=== PATIENT | male | born 1940 ===

== ENCOUNTER 2017-04-24 14:19 | Inpatient (IN) | payer MEDICARE ==
[~2017-04-24] VITALS: Ht 157.5 cm; Wt 56.4 kg
[2017-04-24] MEDS ORDERED: PRINIVIL20 MG PO (18:24)
[2017-04-24] MEDS ORDERED: MULTIPLE VITAMI1 TA1 PO (18:25)
[2017-04-24] MEDS ORDERED: IBUPROFEN200 MG PO (18:26)
[2017-04-24] MEDS ORDERED: ZANTAC150 MG PO (18:26)
[2017-04-24] MEDS ORDERED: PLAVIX75 MG PO (18:26)
[2017-04-24] MEDS ORDERED: PRAVACHOL40 MG PO (18:27)
[2017-04-24] MEDS ORDERED: TENORMIN25 MG PO (18:27)
[2017-04-24] MEDS ORDERED: ZYLOPRIM100 MG PO (18:28)
[2017-04-24] MEDS ORDERED: ULTRAM50 MG PO (18:28)
[2017-04-24] MEDS ORDERED: BAYER CHEWABLE81 MG PO (18:29)
--- NOTE | 2017-04-24 19:17 | NUR ---
Recieved patient via EMS from [facility] at 1800, alert and oriented too self and being in a hospital, patient stated that he was here because he was crazy, Code status is Full Code, VSS T 97.8, B/P 130/88, 96, O2 93% on RA, calm and cooperative with care and assessment, labs ordered , will continue to monitor.
[2017-04-24 21:41] VITALS: BP 100/70
[2017-04-25 02:22] VITALS: BP 130/88; BMI 22.7
[2017-04-25 05:39] LABS: HEMOGLOBIN A1C 5.2 % (4.8-6.0)
[2017-04-25 05:41] LABS: BASOPHILS 0.7 % (0-2); EOSINOPHILS 6.4 % (0-7); HEMATOCRIT 31.2 % (42.0-54.0); HEMOGLOBIN 10.3 g/dL (13.5-17.5); MCH 32.2 pg (26.0-34.0); MCV 97.5 fL (80.0-100.0); MEAN PLATELET VOLUME 9.9 fL (7.4-10.4); MONOCYTES 15.9 % (2-11); PLATELET COUNT 239 10x3/uL (130-400); RDW 15.8 % (11.5-14.5); WBC 4.2 10x3/uL (4.8-10.8)
[2017-04-25 06:03] LABS: ALKALINE PHOSPHATASE 68 U/L (46-116); ALT (SGPT) 24 U/L (10-68); CALC OSMOLALITY 282 mosm/kg (275-300); CALCIUM 8.4 mg/dL (8.5-10.1); CARBON DIOXIDE 25.1 mmol/L (21.0-32.0); CHLORIDE - SERUM 106 mmol/L (98-107); CHOL - HDL RATIO 2.7 ratio (2.3-4.9); CHOLESTEROL, TOTAL 141 mg/dL (0-200); CREATININE - SERUM 0.6 mg/dL (0.6-1.3); GLUCOSE 95 mg/dL (74-106); HDL CHOLESTEROL 52 mg/dL (32-96); LDL CHOLESTEROL 71 mg/dL (0-100); LDL-HDL RATIO 1.4 ratio (1.5-3.5); POTASSIUM - SERUM 3.3 mmol/L (3.5-5.1); PROTEIN - SERUM 6.5 g/dL (6.4-8.2); SODIUM 143 mmol/L (136-145); THYROID STIMULATING HORMONE 1.58 uIU/mL (0.36-3.74); TRIGLYCERIDE 91 mg/dL (30-200); UREA NITROGEN 8 mg/dL (7-18); eGFR NON AFRICAN AMERICAN > 90 mL/min (90-120)
--- NOTE | 2017-04-25 07:55 | NUR ---
ASSESSMENT COMPLETE. MOOD PLEASANT THIS AM. DENIES ANY NEEDS AT THIS TIME.
[2017-04-25 08:20] VITALS: BP 134/67
--- NOTE | 2017-04-25 08:52 | NUR ---
TRAMADOL GIVEN FOR COMPLAINT OF NECK PAIN.
[2017-04-25 10:45] VITALS: BMI 22.5
[2017-04-25 15:05] LABS: APPEARANCE CLEAR (CLEAR); BILIRUBIN NEGATIVE (NEGATIVE); COLOR DK YELLOW (YELLOW); GLUCOSE NEGATIVE (NEGATIVE); KETONE NEGATIVE (NEGATIVE); LEUKOCYTE ESTERASE NEGATIVE (NEGATIVE); NITRITE NEGATIVE (NEGATIVE); PROTEIN NEGATIVE (NEGATIVE); SPECIFIC GRAVITY 1.015 (1.005-1.020); UROBILINOGEN NORMAL (NORMAL)
[2017-04-25 15:07] LABS: WHITE CELLS - URINE 0-5 /hpf (0-5)
[2017-04-25 15:08] LABS: MUCUS <1+ /lpf (NONE SEEN)
[2017-04-25 19:52] VITALS: BP 123/69
--- NOTE | 2017-04-25 20:45 | NUR ---
B) RECEIVED SITTING AT TABLE IN DAYROOM. ALERT AND ORIENTED TO NAME AND HOSPITAL. AMBULATES INDEPENDENTLY. PLEASANT MOOD AND TALKATIVE. I) ADMINISTERED PRESCRIBED MEDICATIONS. ASSESSMENT COMPLETED. VSS. R) COMPLIANT WITH TAKING MEDICATIONS. MAINTAIN FALL PRECAUTIONS. P) WILL CONTINUE PLAN OF CARE.
[2017-04-26 06:13] LABS: RAPID PLASMA REAGIN Non Reactive (Non Reactive)
[2017-04-26 07:25] LABS: VITAMIN D 25 HYDROXY 40.4 ng/mL (30.0-100.0)
[2017-04-26 08:18] LABS: FOLATE (FOLIC ACID) - SERUM >20.0 ng/mL (>3.0)
[2017-04-26 08:46] VITALS: BP 117/72
--- NOTE | 2017-04-26 09:40 | NUR ---
B) PATIENT C/O BACK AND NECK PAIN, PATIENT IS PLEASANT, HE IS SOFT SPOKEN, AMBULATES INDEPENDENTLY. HE HAS CONFUSION, HE IS ORIENTED TO SELF AND PLACE, BUT HAS POOR INSIGHT INTO HIS ILLNESS OR SITUATION. I) PROVIDE PRESCRIBED MEDS, DID PROVIDE 50 MG ULTRAM PO. R) PATIENT IS COMPLIANT WITH MEDS. P) CONTINUE POC.
--- NOTE | 2017-04-26 12:27 | PSY ---
PATIENT NAME:MARU BERRIOS MEDICAL RECORD: [id number] : 44 LOCATION:[facility] ADMISSION DATE: 04/24/17 ACCOUNT: [id number] PSYCHIATRIC EVALUATION DATE OF EVALUATION: 04/25/17 IDENTIFYING DATA: The patient is 77 years old and he is admitted to the hospital on a voluntary basis. CHIEF COMPLAINT: Confusion. HISTORY OF PRESENT ILLNESS: The patient was recently hospitalized at [facility] secondary to agitation and aggression. He was very confused, threatening the nurses trying to attack them and was in restraints. They referred him to us for inpatient psychiatric treatment after clearing him medically and neurologically and the patient interestingly has significantly improved. He does not have recollection for what happened. He does say that he knows he has been confused, but he cannot say why. He says he did not take any drugs, does not drink alcohol and that he does not know anything about it more that he could tell me. He says he is still confused, but he is actually oriented fully and says that he is continuing to get better, although again the reasons for this are a mystery. PAST MEDICAL HISTORY: Significant for hypertension. PAST PSYCHIATRIC HISTORY: Denied by the patient. FAMILY HISTORY: Unknown. ALLERGIES: NONSTEROIDALS. CURRENT MEDICATIONS: Include Pepcid, allopurinol, aspirin, lisinopril, atenolol, Plavix, Ultram, Motrin and pravastatin. SOCIAL HISTORY: The patient has a rather unusual history. He is single. He has never been and he has no children. He says he is homosexual, but the unusual part about this is that he has been an ongoing 40-year sexual relationship with his maternal uncle. He and the uncle have lived together for 40 years and again had this spousal equivalency relationship. The uncle is 87, apparently has cancer and is dying and is on hospice. The patient is upset about that, but it hardly would seem that that could explain his loss of contact with reality and then is quick with rapid return to it. 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 He also says that he used to be an alcoholic. He is evasive about exactly how much he drank, but states that he has not drank at all for more than 20 years. He denies that he ever had any legal problems or difficulties with drug addiction. He did graduate from college and he says he went to [employer] for 2 years. MENTAL STATUS EXAMINATION: The patient is awake, alert and oriented to person, place, time and situation. His mood is flat. His affect is constricted. Thought processes are circumstantial. Memory, concentration and abstraction abilities are mildly impaired and he denies any active intent to harm himself or others as well as overt psychotic symptoms. ASSETS: Stable living environment. LIABILITIES: Limited insight. DIAGNOSTIC IMPRESSION: AXIS I: Delirium, cause unknown. 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 AXIS II: Deferred. AXIS III: Hypertension and hypercholesterolemia. AXIS IV: Moderate stressors. AXIS V: Global assessment of functioning is 35. PLAN: At this time, the patient is admitted to the hospital secondary to aggressive behavior with homicidal intent. Although he has improved, I have no explanation for what occurred and so obviously have no explanation for why it is improved. He has had neuroimaging which shows white matter disease, this would be consistent with longstanding high blood pressure. That is not enough to explain the situation. I am going to have him tested by Dr. Leyda Garcia although he was oriented, he struggled to answer the questions on the mental status exam and I do think there is impairment here. It is unclear whether or not he is going to be able to live independently. His long-term prognosis is guarded. TRANSINT:[id number] Voice Confirmation ID: [id number] DOCUMENT ID: [id number] HOLLI HUNTER MD at 1227 CC: [id number] DICTATION DATE: 04/25/17 1400 APPOINTMENT SPECIALIST: 04/25/17 1529 [facility] IN [facility] [address] [place] [address]
[2017-04-26 19:30] VITALS: BP 126/80
--- NOTE | 2017-04-26 20:10 | NUR ---
ASSESMENT COMPLETED. SITTING IN DAYROOM AT TABLE, IN PLEASANT MOOD. NO VOICED NEEDS. COMPLIANT WITH TAKING MEDICATIONS AND UNIT MILIEU. VSS CONTINUE PLAN OF CARE.
--- NOTE | 2017-04-27 07:38 | NUR ---
ULTRAM 50 MG PO GIVEN FOR BACK OF NECK AREA AT LEVEL #9.
[2017-04-27 09:07] VITALS: BP 135/66
--- NOTE | 2017-04-27 10:43 | PN ---
PATIENT:MARU BERRIOS MEDICAL RECORD: [id number] LOCATION:[facility] ADMISSION DATE: 04/24/17 PROGRESS NOTE DATE OF SERVICE: 04/26/2017 SUBJECTIVE: The patient's case was discussed with staff. He has no new complaint. OBJECTIVE: The patient denies intent to harm himself or others. He tolerates his medicines well. ASSESSMENT: No change in diagnoses. PLAN: Brief supportive and educational interventions were made. Snf prognosis is guarded. The patient tested in the moderate range of impairment with Dr. Garcia. He rejects the findings. I am going to start him on Aricept. He does not object to this, although he does not think it is necessary. I have advised him not to drive. He says he is going to anyway. I have advised him not to live alone and he says that he will try to find a roommate after his uncle dies. TRANSINT:[id number] Voice Confirmation ID: [id number] DOCUMENT ID: [id number] HOLLI HUNTER MD at 1043 CC: [id number] DICTATION DATE: 04/26/17 1250 INTERIOR DECORATOR PAPERHANGING: 04/26/17 1747 ADM IN [id number] [place] [address]
--- NOTE | 2017-04-27 11:49 | NUR ---
B) PATIENT SPOKE WITH DR. HUNTER AND ASKED TO GO HOME, DECLINED. PATIENT IS NOT STABLE ENOUGH PSYCHOLOGICALLY TO BE BY HIMSELF, BUT HE KEEPS SAYING "WELL, I'LL CALL THE IMPERSONATOR CHARACTER OF MY PLACE AND THEY'LL COME GET ME" PATIENT IS NOT PLEASED THAT HE CAN NOT LEAVE YET. PATIENT AMBULATES INDEPENDENTLY. I) PROVIDE MEDS. R) PATIENT IS COMPLIANT WITH MEDS. P) CONTINUE POC.
--- NOTE | 2017-04-27 16:12 | NUR ---
PATIENT C/O PAIN IN HIS NECK AND BACK RATES PAIN 9/10. PROVIDED ULTRAM 50 MG PO NOW.
--- NOTE | 2017-04-27 16:30 | NUR ---
PATIENT SAYS HIS PAIN IS LESS NOW.
[2017-04-27 19:30] VITALS: BP 134/56
--- NOTE | 2017-04-28 04:20 | NUR ---
B) RECEIVED IN DAYROOM SITTING IN CHAIR WATCHING TV. ALERT AND ORIENTED TO SELF AND HOSPITAL. I) ADMINISTERED PRESCRIBED MEDICATIONS. VSS. R) MEDICATION COMPLIANT, MONITOR FOR SAFETY. P) CONTINUE PLAN OF CARE.
[2017-04-28 07:00] VITALS: BP 128/70
[2017-04-28 09:54] VITALS: Ht 157.5 cm; Wt 56.4 kg
--- NOTE | 2017-04-28 09:56 | NUR ---
ORIENTED TO PERSON AND THE FACT THAT HE IS IN A HOSPITAL. NO AGGRESSION NOTED. PT IS RESTLESS AND TALKS ALOT ABOUT HIS UNCLE. HE IS EASILY REDIRECTED WHEN NEEDED. HE IS SOCIAL WITH PEERS AND STAFF WHEN SPOKEN TO DIRECTLY. MEDICATIONS GIVEN ORDERED. FALL PRECAUTIONS MAINTAINED. WILL CONTINUE TO MONITOR AND CONTINUE WITH PLAN OF CARE.
--- NOTE | 2017-04-28 11:36 | PN ---
PATIENT:MARU BERRIOS MEDICAL RECORD: [id number] LOCATION:[facility] ADMISSION DATE: 04/24/17 PROGRESS NOTE DATE OF SERVICE: 04/27/2017 Psychiatric Progress Note SUBJECTIVE: The patient's case was discussed with staff. He has no new complaint. OBJECTIVE: The patient is in good behavioral control with limited insight about his condition. He tolerates his medicines well. ASSESSMENT: No change in diagnoses. PLAN: The patient is significantly impaired. He scored a 29/30, which places him in the moderate range of impairment. This is sufficiently impaired such that it is my opinion, he should not drive and does not have capacity to make reasonably informed consent decisions about his person or himself. He cannot live independently with this kind of impairment, although he might be able to live somewhat semi-independent depending upon the level of supervision that could be provided. He has no children or close relatives. He only has an uncle with whom he has lived for the past 40 years who is in hospice and dying. The patient wants to go home and insists he can take care of himself. He has not demanded to leave in a way that would require me to place him on a hold, but I am willing to do so if necessary and will report the case to adult protective services. At this point, I have explained to him that he needs treatment for some memory loss and depressive symptoms and he is agreeable to this, but still very anxious to get home and insists that he can live independently, which is not correct. I think his prognosis is guarded given his current circumstances, I am not optimistic that he is going to have someone who can take responsibility for the situation. I will discuss this matter further with the treatment team in general and the social contact worker in particular on Saturday. TRANSINT:[id number] Voice Confirmation ID: [id number] DOCUMENT ID: [id number] HOLLI HUNTER MD at 1136 CC: [id number] DICTATION DATE: 04/27/17 1102 VOCATIONAL ED INSTRUCTOR: 04/27/17 1122 ADM IN [address] [id number] [place] [address]
[2017-04-28 19:30] VITALS: BP 146/71
--- NOTE | 2017-04-29 02:34 | NUR ---
B) Patient alert and oriented to self and being in a hospital, calm and cooperative with care and assessment, speaks when spoken to, I) Administered perscribed medications, monitored for safety, R) Medication compliant, no outburst or behaviors noted, P) Continue plan of care.
[2017-04-29 08:13] VITALS: BP 97/64
--- NOTE | 2017-04-29 10:00 | NUR ---
Alert and oriented to name, place and situation stating "I'm here for Alztheimers." Reorient and redirect as needed. Monitor safety. Cooperative with assessment and medications. Pleasant with good behavior control. Safety maintained. Continue plan of care.
[2017-04-29 19:19] VITALS: BP 152/61
--- NOTE | 2017-04-29 19:52 | NUR ---
VERY CONFUSED. HIGH ANXIETY. KICKING DOORS. STATING THAT HE WANTS TO LEAVE. UNABLE TO REDIRECT AND REORIENT.
--- NOTE | 2017-04-29 22:27 | NUR ---
RECEIVED IN BEDROOM. LAYING WITH EYES CLOSED. RESPONDS TO VOICE. CALM AND COOPERATIVE WITH CARE AND ASSESSMENTS. REDIRECT AND REORIENT NEEDED. CONTINUES TO REST IN BED EYES CLOSED. CONTINUE PLAN OF CARE
--- NOTE | 2017-04-30 07:39 | NUR ---
ULTRAM 50 MG PO FOR LEVEL #9 HEADACHE.
--- NOTE | 2017-04-30 07:59 | NUR ---
late entry from 04/29/17: as I was leaving the hospital, the pt stopped me to ask questions. i answered all of his questions. pt started saying that he needed to leave because "his uncle" was dieing and he had to before him. He stated, "I don't want his stuff and that is why i have to first. i can't do that here".
--- NOTE | 2017-04-30 08:30 | NUR ---
AWAKE AND ORIENTED TO PERSON TIME AND PLACE. NO SIGNS OF AGGRESSION NOTED. CALM AND COOPERATIVE WITH CARE AND ASSESSMENT. MEDICATIONS GIVEN ORDERED. REDIRECT AND REORIENT NEEDED. FALLS AND SAFETY MAINTAINED. CONT. POC.
[2017-04-30 09:04] VITALS: BP 164/74
--- NOTE | 2017-04-30 14:08 | PN ---
PATIENT:MARU BERRIOS MEDICAL RECORD: [id number] LOCATION:[facility] ADMISSION DATE: 04/24/17 PROGRESS NOTE DATE OF SERVICE: 04/29/2017 SUBJECTIVE: The patient's case was discussed with staff. He has no new complaint. OBJECTIVE: The patient denies intent to harm himself or others. He does tolerate his medicines well. Eye contact is fair. Concentration is fair. ASSESSMENT: No change in diagnoses. PLAN: Supportive and educational interventions were made. The patient's long-term prognosis is guarded. I am going to increase his Zoloft slightly. I am told that I have an error in one of his previous dictations in which I say that he was tested and found to have a score 29/[address] Leyda Garcia testing. That is incorrect, his score was 19/30 putting him in the moderate range of impairment and that is consistent with what I see with him clinically. Furthermore, he in my opinion is not capable of making reasonable informed consent decisions about his person or estate and cannot live independently. Here lies the difficulty in that he has limited resources and support. He also disagrees with my findings and is insisting that when I release him from here that he can live completely independently on his own, driving himself, managing his own money, appointments and medications. TRANSINT:[id number] Voice Confirmation ID: [id number] DOCUMENT ID: [id number] HOLLI HUNTER MD at 1408 CC: [id number] DICTATION DATE: 04/29/17 1453 SPRAY II PAINTER: 04/29/17 1833 ADM IN [id number] [place] [address]
[2017-04-30 19:34] VITALS: BP 118/66
[2017-04-30 19:42] VITALS: BP 118/66
--- NOTE | 2017-04-30 21:32 | NUR ---
RECEIVED IN BEDROOM. LAYING IN BED WITH EYES CLOSED.CALM AND COOPERATIVE WITH CARE AND ASSESSMENTS. REORIENT NEEDED. ENCOURAGE TO EXPRESS NEEDS. CONTINUES TO REST QUIETLY IN BED. CONTINUE PLAN OF CARE
[2017-05-01 07:32] VITALS: BP 147/72
[2017-05-01 07:37] VITALS: BP 152/70
--- NOTE | 2017-05-01 12:17 | PN ---
PATIENT:MARU BERRIOS MEDICAL RECORD: [id number] LOCATION:[facility] ADMISSION DATE: 04/24/17 PROGRESS NOTE DATE OF SERVICE: 04/30/2017 SUBJECTIVE: The patient's case was discussed with staff. He has no new complaint. OBJECTIVE: The patient told the charge nurse community director yesterday that the reason he was so anxious to go home was because his uncle is dying and his uncle is not supposed to first. Maru mentioned something about not wanting the uncle to first because that uncle would leave all of his money to him. I am not sure why this is a problem, but Maru went on to say to the community director yesterday that he intended to kill himself before the uncle . When asked about this today, Maru denies having ever made the statements. This is very odd. Furthermore, Dr. Garcia was unable to find the testing that she had originally done that showed him in the moderate range of impairment and she used another scale and tested him today and he scored a little better. He did score 24/30, which places in the mild range of impairment, but still he should not drive a car nor should he be living alone. Assisted living would be an appropriate setting with this level of impairment. I have spoken to the patient about this and he absolutely refuses to consider such a thing. ASSESSMENT: No change in diagnoses. PLAN: The patient is taking Zoloft for its antidepressant effect. He is 77 years old and he only weighs 124 pounds. I will increase the Zoloft over the next few days. Adult protective services has been notified and hopefully they can assist us in finding some sort of assistance replacement for Maru. TRANSINT:[id number] Voice Confirmation ID: [id number] DOCUMENT ID: [id number] HOLLI HUNTER MD at 1217 CC: [id number] DICTATION DATE: 04/30/17 1419 FINE HAIRER: 04/30/17 2221 ADM IN [address] [place] [address]
--- NOTE | 2017-05-01 16:36 | NUR ---
ASSESSMENT COMPLETED PER FLOW SHEET. PLEASANT AND FRIENDLY MOOD TODAY. NO VOICED NEEDS. NO AGGRESSION NOTED. MONITOR FOR SAFETY. WILL CONT POC.
[2017-05-01 19:51] VITALS: BP 96/69
--- NOTE | 2017-05-02 00:28 | NUR ---
B) Recieved patient in the hallway, alert and oriented to self and being in a hospital, calm and cooperative with care and assessment, I) Administered perscribed medications, monitored for safety, R) Medication compliant, resting quietly, P) Continue plan of care.
[2017-05-02 07:48] VITALS: BP 129/67
--- NOTE | 2017-05-02 08:05 | NUR ---
ASSESSMENT COMPLETED PER FLOW SHEET. COMPLAINS OF NECK PAIN ULTRAM 50 MG PO GIVEN. DENIES ANY OTHER NEEDS. CALM AND COOPERATIVE WITH CARE.
--- NOTE | 2017-05-02 08:43 | NUR ---
ULTRAM 50 MG PO GIVEN FOR LEVEL #9 NECK PAIN.
--- NOTE | 2017-05-02 10:44 | NUR ---
LATE ENTRY FROM 05/03 SW CALLED APS AND MADE REPORT DUE TO PT NOT BEING ABLE TO LIVE BY HIMSELF ANYMORE AND NOT BEING WILLING TO GO TO A PLACEMENT. PT HAS NO FAMILY OR FRIEND SUPPORT.
--- NOTE | 2017-05-02 11:11 | NUR ---
Nutrition Follow Up: Pt is eating 87% meal avg on a regular diet. +BM 05/01/17. No new wt to assess. Meds noted. No new labs. Rec continue current diet. RD following.
--- NOTE | 2017-05-02 13:34 | PN ---
PATIENT:MARU BERRIOS MEDICAL RECORD: [id number] LOCATION:[facility] ADMISSION DATE: 04/24/17 PROGRESS NOTE DATE OF SERVICE: 05/01/2017 Psychiatric Progress Note SUBJECTIVE: The patient's case was discussed with staff. He has no new complaint. OBJECTIVE: The patient is a little angry and frustrated after I explained to him that adult protective services is looking into whether or not he can live alone. He becomes argumentative, tells me that this is ridiculous and that he has absolutely nothing wrong with him. He then goes on to say that he is going to kill himself. He states that if he has to live somewhere other than independently or completely independently, that he might as well be . When asked to explain, he clarifies. I think that he was more impulsive or angry when he said this, but nevertheless, he did say this and this is not the first time he has threatened to kill himself here. 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 ASSESSMENT: No change in diagnoses. PLAN: Current medicines have been reviewed and will be maintained. Long-term prognosis is guarded. TRANSINT:[id number] Voice Confirmation ID: [id number] DOCUMENT ID: [id number] HOLLI HUNTER MD at 1334 CC: [id number] DICTATION DATE: 05/01/17 1226 BRAZE OPERATOR: 05/01/172026 ADM IN [address] [place] [address]
[2017-05-02 20:10] VITALS: BP 147/51
--- NOTE | 2017-05-03 03:02 | NUR ---
B) Patient alert and oriented, calm and cooperative, watching TV, speaks when spoken to, I) Administered perscribed medications, monitored for safety, R) Medication compliant, resting quietly in bed now, P) Continue plan of care.
[2017-05-03 07:54] VITALS: BP 107/81
--- NOTE | 2017-05-03 10:55 | NUR ---
PAIN LEVEL REMAINS HIGH POST TAKING TRAMADOL BUT STATES " IT WILL BE GONE BY NOON,IT JUST TAKES AWHILE."
--- NOTE | 2017-05-03 16:13 | NUR ---
cooperative with care. no aggression noted. participated in groups and social with staff and other pts. medications given as ordered. fall precautions maintained. will continue to monitor and continue with plan of care.
[2017-05-03 19:30] VITALS: BP 151/61
--- NOTE | 2017-05-04 00:43 | NUR ---
B) Patient alert and oriented to self and hospital, calm and cooperative, I) Administered perscribed medications, monitored for falls and safety, R) Medication compliant, resting quietly, P) Continue plan of care.
[2017-05-04 07:47] VITALS: BP 89/57
--- NOTE | 2017-05-04 13:48 | NUR ---
ASSESSMENT COMPLETED. COOPERATIVE WITH CARE. COMPLIANT WITH MEDICATIONS AND UNIT MILIEU. DENIES ANY NEEDS AT THIS TIME. FALL AND SAETTY MAINTAINED. WILL CONTINUE PLAN OF CARE.
[2017-05-04 19:30] VITALS: BP 98/57
--- NOTE | 2017-05-05 02:51 | NUR ---
B) Patient alert and oriented, calm and cooperative, I Administered scheduled medications, monitored for safety, R) Medication compliant, resting quietly now, P) Continue plan of care.
--- NOTE | 2017-05-05 05:30 | PN ---
PATIENT:MARU BERRIOS MEDICAL RECORD: [id number] LOCATION:[facility] ADMISSION DATE: 04/24/17 PROGRESS NOTE DATE OF SERVICE: 05/03/2017 SUBJECTIVE: No new complaint. OBJECTIVE: The patient has not exhibited any further suicidal statements or evidence of ideation. It appears that placement may be available for him in a private chcf. Overall, he is doing better. On exam, mood is euthymic and pleasant. Affect is bland. Speech is rather terse. Content of thought as noted above. Sensorium unchanged. ASSESSMENT: No change in diagnosis. PLAN: 1. Continue all current medications. 2. Continue supportive therapy. TRANSINT:[id number] Voice Confirmation ID: [id number] DOCUMENT ID: [id number] ADA CANTRELL III, MD at 0530 CC: [id number] DICTATION DATE: 05/03/17 1231 SAND BOBBER: 05/03/172010 ADM IN [facility] [address] [place] [address]
[2017-05-05 08:07] VITALS: BP 131/60
--- NOTE | 2017-05-05 16:45 | NUR ---
ALERT BUT CONFUSED.IS COMPLIANT WITH MEDS AND STAFF.KEEPS TO SELF.WALKS WITH A SLIGHT LIMP,RIGHT FOOT DEFORMED.WILL CONTINUE WITH PLAN OF CARE,MONITOR FOR SAFETY AND CHANGES.
[2017-05-05 20:01] VITALS: BP 89/49
--- NOTE | 2017-05-05 21:20 | NUR ---
RECEIVED IN DAYROOM. SITTING BY HIMSELF IN CHAIR WATCHING TV. CALM AND COOPERATIVE WITH CARE AND ASSESSMENTS. ENCOURAGE TO EXPRESS NEEDS. COTINUES TO SIT QUIETLY WATCHING TV. CONTINUE PLAN OF CARE
[2017-05-06 07:00] VITALS: BP 139/77
--- NOTE | 2017-05-06 13:11 | PN ---
PATIENT:MARU BERRIOS MEDICAL RECORD: [id number] LOCATION:[facility] ADMISSION DATE: 04/24/17 PROGRESS NOTE DATE OF SERVICE: 05/02/2017 SUBJECTIVE: The patient's case was discussed with staff. He has no new complaint. OBJECTIVE: The patient is in good behavioral control with limited insight about his condition. He says he is sorry for threatening to kill himself yesterday and says he would not do so. ASSESSMENT: No change in diagnoses. PLAN: The patient will be maintained on his antidepressant medicine and I am going to increase the dose slightly. He will be seen by adult protective services. They are going to examine the situation and will give us a determination as to whether or not the state will allow him to live alone. TRANSINT:[id number] Voice Confirmation ID: [id number] DOCUMENT ID: [id number] HOLLI HUNTER MD at 1311 CC: [id number] DICTATION DATE: 05/02/17 1343 SUSTAIN ENGINEER: 05/02/17 1907 ADM IN [facility] [address] [place] [address]
[2017-05-06] MEDS ORDERED: FERREX 150 PLUS1 CAP PO (13:20)
[2017-05-06] MEDS ORDERED: ZOLOFT100 MG PO (13:20)
[2017-05-06] MEDS ORDERED: ARICEPT5 MG PO (13:20)
[2017-05-06 19:45] VITALS: BP 132/63
--- NOTE | 2017-05-07 01:20 | NUR ---
RECEIVED IN BEDROOM. RESTING EYES CLOSED IN BED. CALM AND COOPERATIVE WITH CARE AND ASSESSMENTS. ENCOURAGE TO EXPRESS NEEDS AND FEELINGS. RESTING EYES CLOSED. CONTINUE PLAN OF CARE
[2017-05-07 07:57] VITALS: BP 116/79
--- NOTE | 2017-05-07 08:30 | NUR ---
AWAKE AND ALERT THIS AM. CALM AND COOPERATIVE WITH ASSESSMENT AND CARE. VSS. COMPLIANT WITH TAKING PRESCRIBED MEDICATIONS. FALL PRECAUTIONS MAINTAINED. WILL CONTINUE TO MONITOR. PATIENT IS SCHEDULED TO DISCHARGE TODAY TO [facility]. ALL DISCHARGE PAPERWORK REVIEWED AND FAXED TO [facility]. ALL BELONGINGS BAGGED AND ACCOUNTED FOR.
--- NOTE | 2017-05-07 10:37 | NUR ---
PT ALERT THIS AM. PT COMPLIANT WITH MEDICATION. PT RESTING IN DAYROOM AT THIS TIME. [facility].
--- NOTE | 2017-05-07 13:45 | PN ---
PATIENT:MARU BERRIOS MEDICAL RECORD: [id number] LOCATION:[facility] ADMISSION DATE: 04/24/17 PROGRESS NOTE DATE OF SERVICE: 05/06/2017 SUBJECTIVE: The patient's case was discussed with staff. He has no new complaint. OBJECTIVE: The patient is in good behavioral control with poor insight about his condition. He has been accepted to an assisted living center and he is fine with going there. Unfortunately, his uncle just . I received the news an hour and a half ago and brought Maru into the director and social services designee's office and told him. He is clearly distressed, but as he reported he has known this was going to happen at any time for months. He is going to be discharged tomorrow and the home and has already made all the arrangements that were made ahead of time by the uncle. ASSESSMENT: No change in diagnoses. PLAN: The patient is going to have his Zoloft increased slightly and I anticipate he can be discharged tomorrow morning. TRANSINT:[id number] Voice Confirmation ID: [id number] DOCUMENT ID: [id number] HOLLI HUNTER MD at 1345 CC: [id number] DICTATION DATE: 05/06/17 1331 PHYSICIAN'S AIDE: 05/06/17 1833 ADM IN [id number] [place] [id number]
--- NOTE | 2017-05-08 12:35 | PN ---
PATIENT:MARU BERRIOS MEDICAL RECORD: [id number] LOCATION:[id number] ADMISSION DATE: 04/24/17 PROGRESS NOTE DATE OF SERVICE: 05/07/2017 SUBJECTIVE: The patient's case was discussed with staff. He has no new complaint. OBJECTIVE: The patient is in good behavioral control. He is accepting the of his uncle very well. He has not been threatening or agitated. In fact, he actually looks as though he is a little relieved and this probably provides a little bit of closure to the stress that he has had for sometime now. ASSESSMENT: No change in diagnoses. PLAN: The patient is going to be transitioned out of the hospital to an assisted living center. His long-term prognosis is guarded. TRANSINT:[id number] Voice Confirmation ID: [id number] DOCUMENT ID: [id number] HOLLI HUNTER MD at 1235 CC: [id number] DICTATION DATE: 05/07/17 1422 LAW PROFESSOR: 05/07/17 1541 DIS IN 05/07/17 [id number] [place] [address]
== END 2017-05-07 11:00 | disposition home or self-care (01) | DRG 880 ==
LOC: UNDOADMIN 14:19 → D.PSYCH 14:19
PROVIDERS: ADMIT Psychiatry & Neurology Psychiatry
DX: F05 Delirium due to known physiological condition (principal); F01.50 Vascular dementia, unspecified severity, without behavioral disturbance, psychotic disturbance, mood disturbance, and anxiety; I12.9 Hypertensive chronic kidney disease with stage 1 through stage 4 chronic kidney disease, or unspecified chronic kidney disease; N18.9 Chronic kidney disease, unspecified; E78.00 Pure hypercholesterolemia, unspecified; J44.9 Chronic obstructive pulmonary disease, unspecified; E78.5 Hyperlipidemia, unspecified; D64.9 Anemia, unspecified; F41.9 Anxiety disorder, unspecified; Z91.81 History of falling; I65.22 Occlusion and stenosis of left carotid artery; M19.90 Unspecified osteoarthritis, unspecified site